=== PATIENT | male | born 1985 | race Two or more races ===

== ENCOUNTER 2020-03-06 12:09 | Emergency (ER) | payer MEDICAID, MEDICARE ==
[~2020-03-06] VITALS: Ht 172.7 cm; Wt 94.1 kg
[2020-03-06 12:10] VITALS: BP 164/124
--- NOTE | 2020-03-06 12:38 | NUR ---
PT CAME IN CO OF SOB X 2 MONTHS. PT ALSO STATES HE FELL PLAYING FOOTBALL YESTERDAY AND HURT HIS LOWER BACK. 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 PT RESTING IN [facility]. VSS. CONNECTED TO MONITORING EQUIPMENT
[2020-03-06 12:52] LABS: BASOPHILS # (AUTO) 0.05 x10^3/uL (0-0.1); BASOPHILS % (AUTO) 1 % (0-1); EOSINOPHILS # (AUTO) 0.12 x10^3/uL (0-0.4); EOSINOPHILS % (AUTO) 1 % (1-7); LYMPHOCYTES # (AUTO) 2.32 x10^3/uL (1-3.4); LYMPHOCYTES % (AUTO) 24 % (22-44); MD NO; MEAN CORPUSCULAR HEMOGLOBIN 29.2 pg (27.5-34.5); MEAN CORPUSCULAR HGB CONC 33.2 g/dL (33.2-36.2); MEAN CORPUSCULAR VOLUME 87.8 fL (81-97); MEAN PLATELET VOLUME 8.6 fL (7.4-10.4); MONOCYTES # (AUTO) 0.53 x10^3/uL (0.2-0.8); MONOCYTES % (AUTO) 5 % (2-9); NEUTROPHILS # (AUTO) 6.86 x10^3/uL (1.8-6.8); NEUTROPHILS % (AUTO) 70 % (42-75); PLATELET COUNT 229 x10^3/uL (130-400); RED BLOOD COUNT 5.24 x10^6/uL (4.38-5.82); RED CELL DISTRIBUTION WIDTH 13.4 % (9.4-14.8)
--- NOTE | 2020-03-06 12:57 | NUR ---
REPORT FROM RUDI CHAPARRO.
[2020-03-06 13:03] LABS: ALBUMIN 3.7 g/dL (3.4-5.0); ANION GAP 5 mmol/L (5-15); CALCIUM 8.6 mg/dL (8.5-10.1); CHLORIDE 104 mmol/L (98-107); CREATININE 1.02 mg/dL (0.7-1.3)
== END 2020-03-06 13:46 | disposition home or self-care (01) ==
LOC: ED 13:19
DX: S39.012A Strain of muscle, fascia and tendon of lower back, initial encounter (principal); R06.00 Dyspnea, unspecified; R07.89 Other chest pain; F17.200 Nicotine dependence, unspecified, uncomplicated; Z85.47 Personal history of malignant neoplasm of testis; W01.0XXA Fall on same level from slipping, tripping and stumbling without subsequent striking against object, initial encounter; Y93.89 Activity, other specified; Y92.89 Other specified places as the place of occurrence of the external cause; Y99.8 Other external cause status
CPT/HCPCS: 36415; 71045; 80048; 82040; 85025; 85379; 93005; 99285